=== PATIENT | female | born 1985 | race Caucasian/White ===

== ENCOUNTER 2019-12-26 08:06 | Emergency (ER) | payer MEDICAID ==
[2019-12-26] MEDS ORDERED: KETOROLAC 30 MG/ML VIAL IVP STA (08:41)
[2019-12-26] MEDS ORDERED: SODIUM CHLORIDE 0.9% 1,000 ML IV STA (08:41)
[2019-12-26 08:42] LABS: BASOPHILS # (AUTO) 0.1 10^3/uL (0.0-0.1); BASOPHILS % (AUTO) 1.2 %; EOSINOPHILS # (AUTO) 0.1 10^3/uL (0.0-0.7); EOSINOPHILS % (AUTO) 1.9 %; HGB - HEMOGLOBIN 13.7 g/dL (12.0-16.0); LYMPHOCYTES # (AUTO) 1.2 10^3/uL (1.5-3.5); LYMPHOCYTES % (AUTO) 27.2 %; MEAN CORPUSCULAR HEMOGLOBIN 31.1 pg (27.0-31.0); MEAN CORPUSCULAR HGB CONC 34.8 g/dL (32.0-36.0); MEAN CORPUSCULAR VOLUME 89.5 fL (81.0-99.0); MEAN PLATELET VOLUME 10.1 fL (7.9-10.8); MONOCYTES # (AUTO) 0.4 10^3/uL (0.0-1.0); MONOCYTES % (AUTO) 10.2 %; NEUTROPHILS # (AUTO) 2.5 10^3/uL (1.5-6.6); NEUTROPHILS % (AUTO) 59.3 %; PLT - PLATELET COUNT 299 10^3/uL (130-450); WHITE BLOOD COUNT 4.2 x10^3/uL (4.8-10.8)
[2019-12-26] MEDS ORDERED: cefTRIAXone 1 GM VIAL IVP STA (08:43)
[2019-12-26 08:44] LABS: BILIRUBIN,URINE NEGATIVE (NEGATIVE); GLUCOSE, URINE (UA) NEGATIVE (NEGATIVE); KETONES,URINE (UA) NEGATIVE (NEGATIVE); LEUKOCYTE ESTERASE, URINE NEGATIVE (NEGATIVE); NITRITE,URINE NEGATIVE (NEGATIVE); OCCULT BLOOD,URINE MODERATE (NEGATIVE); PH,URINE 7.5 PH (5.0-7.5); PROTEIN,URINE NEGATIVE (NEGATIVE); UROBILINOGEN,URINE 0.2 (NORMAL) E.U./dL (NORMAL)
--- NOTE | 2019-12-26 08:45 | ED Physician Documentation ---
History of Present Illness - Stated complaint Stated Complaint: R FLANK PX - Chief complaint Chief Complaint: Abd Pain - History obtained from History obtained from: Patient - History of Present Illness Timing: Today Pain level max: 0 Pain level now: 0 - Additonal information Additional information: 34-year-old female presents to the emergency department complaining of flank pain for the past week. She had dysuria approximately 1 week ago, was seen at urgent care and states that her urine was clean. She states they prescribed antibiotics "just in case". Increasing right flank pain today. Nothing makes it better or worse. Has had nausea but no vomiting. Currently on her menses. Denies any possibility of . No fevers. No vaginal discharge. No diarrhea or constipation. Review of Systems Ten Systems: 10 systems reviewed and negative Constitutional: denies: Fever, Chills Nose: denies: Rhinorrhea / runny nose, Congestion Respiratory: denies: Cough GI: reports: Nausea. denies: Vomiting, Diarrhea, Hematemesis, Bloody / black stool : reports: Dysuria. denies: Frequency, Hesitancy, Discharge, Now EGA Skin: denies: Rash Musculoskeletal: denies: Neck pain Neurologic: denies: Headache PD PAST MEDICAL HISTORY - Past Medical History Past Medical History: Yes Other Past Medical History: Seasonal allergies - Past Surgical History Past Surgical History: No - Present Medications Home Medications: Ambulatory Orders Medication Instructions Recorded Confirmed Cefdinir 300 mg PO BID #20 capsule 12/26/19 - Allergies Allergies/Adverse Reactions: Allergies Allergy/AdvReac Type Severity Reaction Status Date / Time No Known Drug Allergies Allergy Verified 12/26/19 08:21 - Living Situation Living Situation: reports: With family Living Arrangement: reports: At home - Social History Does the pt smoke?: No Does the pt have substance abuse?: No - Family History Family history: reports: Non contributory PD ED PE NORMAL - Vitals Vital signs reviewed: Yes - General General: Alert and oriented X 3, No acute distress, Well developed/nourished - HEENT HEENT: PERRL, Moist mucous membranes - Neck Neck: Supple, no meningeal sign - Cardiac Cardiac: RRR, Strong equal pulses - Respiratory Respiratory: No respiratory distress, Clear bilaterally - Abdomen Abdomen: Soft, Non tender, Non distended - Back Back: No spinal TTP, Other (Right CVA tenderness) - Derm Derm: Warm and dry - Extremities Extremities: No edema - Neuro Neuro: Alert and oriented X 3 - Psych Psych: Normal mood, Normal affect Results - Vitals Vitals: Vital Signs - 24 hr 12/26/19 12/26/19 08:13 10:17 Temperature 37.0 C 37.1 C Heart Rate 69 78 Respiratory 20 18 Rate Blood Pressure 99/53 L 105/81 H O2 Saturation 100 98 Oxygen O2 Source Room air - Labs Labs: Laboratory Tests 12/26/19 12/26/19 12/26/19 08:31 08:31 08:37 WBC 4.2 L RBC 4.40 Hgb 13.7 Hct 39.4 MCV 89.5 MCH 31.1 H MCHC 34.8 RDW 13.0 Plt Count 299 MPV 10.1 Neut # (Auto) 2.5 Lymph # (Auto) 1.2 L [place] # (Auto) 0.4 Eos # (Auto) 0.1 Baso # (Auto) 0.1 Absolute Nucleated RBC 0.00 Nucleated RBC % 0.0 Sodium Potassium Chloride Carbon Dioxide Anion Gap BUN Creatinine Estimated GFR (MDRD) Glucose Calcium Total Bilirubin AST ALT Alkaline Phosphatase Total Protein Albumin Globulin Albumin/Globulin Ratio Lipase Urine Color YELLOW Urine Clarity CLEAR Urine pH 7.5 Ur Specific Adams 1.010 Urine Protein NEGATIVE Urine Glucose (UA) NEGATIVE Urine Ketones NEGATIVE Urine Occult Blood MODERATE H Urine Nitrite NEGATIVE Urine Bilirubin NEGATIVE Urine Urobilinogen 0.2 (NORMAL) Ur Leukocyte Esterase NEGATIVE Urine RBC 0-5 Urine WBC 0-3 Ur Squamous Epith Cells RARE Squamous Urine Bacteria Rare Ur Microscopic Review INDICATED Urine Culture Comments NOT INDICATED Urine HCG, Qual NEGATIVE Urine Opiates Screen NEGATIVE Ur Oxycodone Screen NEGATIVE Urine Methadone Screen NEGATIVE Ur Propoxyphene Screen NEGATIVE Ur Barbiturates Screen NEGATIVE Ur Tricyclics Screen NEGATIVE Ur Phencyclidine Scrn NEGATIVE Ur Amphetamine Screen NEGATIVE U Methamphetamines Scrn NEGATIVE U Benzodiazepines Scrn NEGATIVE Urine Cocaine Screen NEGATIVE U Cannabinoids Screen NEGATIVE 12/26/19 08:37 WBC RBC Hgb Hct MCV MCH MCHC RDW Plt Count MPV Neut # (Auto) Lymph # (Auto) [place] # (Auto) Eos # (Auto) Baso # (Auto) Absolute Nucleated RBC Nucleated RBC % Sodium 134 L Potassium 3.5 Chloride 103 Carbon Dioxide 24 Anion Gap 7.0 BUN 10 Creatinine 0.6 Estimated GFR (MDRD) 114 Glucose 98 Calcium 9.1 Total Bilirubin 0.7 AST 19 ALT 14 Alkaline Phosphatase 37 L Total Protein 6.9 Albumin 4.5 Globulin 2.4 Albumin/Globulin Ratio 1.9 Lipase 30 Urine Color Urine Clarity Urine pH Ur Specific Adams Urine Protein Urine Glucose (UA) Urine Ketones Urine Occult Blood Urine Nitrite Urine Bilirubin Urine Urobilinogen Ur Leukocyte Esterase Urine RBC Urine WBC Ur Squamous Epith Cells Urine Bacteria Ur Microscopic Review Urine Culture Comments Urine HCG, Qual Urine Opiates Screen Ur Oxycodone Screen Urine Methadone Screen Ur Propoxyphene Screen Ur Barbiturates Screen Ur Tricyclics Screen Ur Phencyclidine Scrn Ur Amphetamine Screen U Methamphetamines Scrn U Benzodiazepines Scrn Urine Cocaine Screen U Cannabinoids Screen - Rads (name of study) CT abd pelvis Radiology: Prelim report reviewed, EMP read contemporaneously, See rad report (No acute abnormality) PD MEDICAL DECISION MAKING - ED course Complexity details: reviewed results, re-evaluated patient, considered differential, d/w patient ED course: Patient with right flank pain. This was preceded by dysuria. Possible pyelonephritis. No evidence of ureteral stone on CT scan. No evidence of abscess. Pain well controlled with Toradol. Given Rocephin here as well. We will treat her as pyelonephritis. She is well-appearing, nontoxic. Afebrile. Tolerating p.o. without difficulty. Not . Patient counseled regarding signs and symptoms for which I believe and urgent re-evaluation would be necessary. Patient with good understanding of and agreement to plan and is comfortable going home at this time This document was made in part using voice recognition software. While efforts are made to proofread this document, sound alike and grammatical errors may occur. Departure - Departure Disposition: 01 Home, Self Care Clinical Impression: Pyelonephritis Condition: Good Instructions: ED Kidney Infec Female Follow-Up: your,doctor in 1 week [Other] Prescriptions: Cefdinir 300 mg PO BID #20 capsule Comments: take all antibiotics until gone. Return if you worsen. Follow-up with your doctor for further care. Discharge Date/Time: 12/26/19 10:17
[2019-12-26 08:46] LABS: CLARITY,URINE CLEAR (CLEAR); HCG UR QUAL NEGATIVE
[2019-12-26 08:49] LABS: BACTERIA,URINE Rare /HPF (None Seen); RBC,URINE 0-5 /HPF (0-5); SQUAMOUS EPITHELIAL CELL,UR RARE Squamous (<= Few)
[2019-12-26] MEDS ORDERED: IOVERSOL 320 100 ML VIAL IVP ONE ×2 (08:54→09:41)
[2019-12-26 08:56] LABS: ALBUMIN 4.5 g/dL (3.2-5.5); ALBUMIN/GLOBULIN RATIO 1.9 (1.0-2.2); BILIRUBIN,TOTAL 0.7 mg/dL (0.2-1.0); CALCIUM 9.1 mg/dL (8.5-10.3); CREATININE 0.6 mg/dL (0.4-1.0); TOTAL PROTEIN 6.9 g/dL (6.7-8.2)
[2019-12-26 09:36] LABS: MUDS CUTOFF CONCENTRATIONS CUTOFF CONC BELOW:
--- NOTE | 2019-12-26 09:45 | CT Report ---
PROCEDURE: Abdomen/Pelvis W INDICATIONS: R flank pain, pyelo vs stone? CONTRAST: IV CONTRAST: Optiray 320 ml: 100 PO CONTRAST: *NO PO CONTRAST TECHNIQUE: After the administration of oral and intravenous contrast, 5 mm thick sections acquired from the diap hragms to the symphysis. 5 mm thick coronal and sagittal reformats were acquired. For radiation dos e reduction, the following was used: automated exposure control, adjustment of mA and/or kV accordin g to patient size. COMPARISON: None. FINDINGS: Image quality: Excellent. ABDOMEN: Lung bases: Lung bases are clear. Heart size is normal. Solid organs: The liver is enlarged in size and show normal contrast enhancement. Spleen show normal size and enhancement. Gallbladder is within normal limits. Biliary system is non dilated. Pancreas enhances normally. No adrenal nodules. Kidneys demonstrate normal size and enhancement, without hy dronephrosis. 1.4 cm cortical cyst is seen in mid pole of right kidney. Additional subcentimeter bila teral renal cortical cysts are also seen. There is also a 1.1 cm lower pole right renal cortical cyst s. No perinephric fat stranding or fluid collection. Peritoneum and bowel: Bowel loops demonstrate normal wall thickness and caliber. No free fluid or a ir. Significant fecal stasis throughout the colon is seen. Nodes and vessels: No retroperitoneal or mesenteric adenopathy by size criteria. Aorta and inferior vena cava are normal in size. Miscellaneous: No ventral hernias. PELVIS: Genitourinary: Bladder wall thickness is normal. Small phleboliths are noted in bilateral lower pel vis. Miscellaneous: No inguinal hernias or adenopathy. No gross abnormality is seen in the uterus and bi lateral adnexa. Bones: No suspicious bony lesions. No vertebral body compression fractures. Significant degenerati ve disc disease at L3-4 through L5-S1 levels are seen. IMPRESSION: 1. No renal stone or hydronephrosis. Bilateral renal cysts as above. No perinephric fat stranding or fluid. Normal-appearing bilateral ureters and distended urinary bladder. 2. Constipation. No bowel obstruction. No abnormal bowel wall thickening. No free fluid or free air. 3. Hepatomegaly, no discrete hepatic lesion. Reviewed by: Duncan Villa MD on 12/26/2019 9:44 AM PDT Approved by: Duncan Villa MD on 12/26/2019 9:44 AM PDT Station ID: [id number]
[2019-12-26 09:49] LABS: AMPHETAMINE SCREEN,URINE NEGATIVE (NEGATIVE); BENZODIAZEPINES SCREEN, URINE NEGATIVE (NEGATIVE); COCAINE SCREEN URINE NEGATIVE (NEGATIVE); METHADONE SCREEN, URINE NEGATIVE (NEGATIVE); METHAMPHETAMINES SCREEN, URINE NEGATIVE (NEGATIVE); OPIATE SCREEN, URINE NEGATIVE (NEGATIVE); OXYCODONE SCREEN, URINE NEGATIVE (NEGATIVE); PROPOXYPHENE SCREEN, URINE NEGATIVE (NEGATIVE); TRICYCLIC ANTIDEPRESSANT,URINE NEGATIVE (NEGATIVE)
[2019-12-26 10:17] VITALS: BP 105/81
== END 2019-12-26 10:17 | disposition home or self-care (01) ==
LOC: ED 08:06
DX: N12 Tubulo-interstitial nephritis, not specified as acute or chronic (principal)
CPT/HCPCS: 36415; 74177; 80053; 80306; 81001; 81025; 83690; 85025; 96374; 99284; Q9967; 81003; 87086

== ENCOUNTER 2021-07-29 13:16 | Outpatient (CLI) | payer MEDICAID | END 2021-07-29 13:17 | disposition critical access hospital (66) | LOC: EMS 13:16 | DX: J45.909 Unspecified asthma, uncomplicated (principal); R00.0 Tachycardia, unspecified | CPT/HCPCS: A0425; A0427; A0999 ==

== ENCOUNTER 2021-07-29 13:38 | Emergency (ER) | payer MEDICAID ==
[2021-07-29] MEDS ORDERED: diphenhydrAMINE INJ 50 MG/ML VIAL IVP STA (13:51)
--- NOTE | 2021-07-29 13:53 | ED Physician Documentation ---
PD HPI DYSPNEA - Stated complaint Stated Complaint: SOA - Chief complaint Chief Complaint: Resp - History obtained from History obtained from: Patient, EMS - Additional information Additional information: 36-year-old woman with mild intermittent asthma developed an asthma attack today. 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 She was going to the store to buy some Benadryl, but was feeling more short of breath so EMS was summoned. They describe her as having some significant wheezing but also feeling panicky. On arrival she has had a DuoNeb and Solu-Medrol and is not wheezing anymore but feels still feels short of breath. Review of Systems Constitutional: denies: Fever, Chills Cardiac: denies: Chest pain / pressure, Palpitations Respiratory: reports: Dyspnea, Cough PD PAST MEDICAL HISTORY - Past Surgical History Past Surgical History: No - Present Medications Home Medications: Ambulatory Orders Medication Instructions Recorded Confirmed Cefdinir 300 mg PO BID #20 capsule 12/26/19 Naproxen 375 mg PO TID #30 tablet 12/30/19 metroNIDAZOLE [Flagyl] 500 mg PO BID #14 tablet 12/30/19 predniSONE [Deltasone] 60 mg PO DAILY 5 Days #15 tablet 07/29/21 - Allergies Allergies/Adverse Reactions: Allergies Allergy/AdvReac Type Severity Reaction Status Date / Time No Known Drug Allergies Allergy Verified 07/29/21 13:44 - Social History Does the pt smoke?: No Does the pt have substance abuse?: No PD ED PE NORMAL - Vitals Vital signs reviewed: Yes - General General: Alert and oriented X 3, Other (She appears slightly anxious but breathing is nonlabored) - HEENT HEENT: Pharynx benign - Respiratory Respiratory: No respiratory distress, Other (Lungs are clear at this juncture) - Abdomen Abdomen: Non tender - Derm Derm: No rash - Neuro Neuro: Alert and oriented X 3, Normal speech Results - Vitals Vitals: Vital Signs - 24 hr 07/29/21 13:40 Temperature 36.7 C Heart Rate 96 Respiratory 18 Rate Blood Pressure 105/91 H O2 Saturation 100 Oxygen O2 Source Room air PD MEDICAL DECISION MAKING - ED course ED course: 36-year-old woman presents with an asthma exacerbation, on arrival here her lungs are clear but still having some coughing. She requested Benadryl and this was given after which she was feeling much better. Remained clear on auscultation on reexamination prior to discharge. Departure - Departure Disposition: 01 Home, Self Care Clinical Impression: Asthma Qualifiers: Asthma severity: mild Asthma persistence: intermittent Asthma complication type: with acute exacerbation Qualified Code(s): J45.21 - Mild intermittent asthma with (acute) exacerbation Condition: Good Record reviewed to determine appropriate education?: Yes Instructions: Asthma Dc Prescriptions: predniSONE [Deltasone] 60 mg PO DAILY 5 Days #15 tablet Comments: I sent your prescription electronically to [facility] in [place]. As discussed, you do not need any more steroids until tomorrow since you had a dose on the way here in the ambulance. Return for new or worsening symptoms. Follow-up with your doctor, next available appointment.
--- NOTE | 2021-07-29 14:37 | XRAY Report ---
PROCEDURE: Chest 1 View X-Ray INDICATIONS: dyspnea TECHNIQUE: One view of the chest was acquired. COMPARISON: None FINDINGS: Surgical changes and devices: None. Lungs and pleura: No pleural effusions or pneumothorax. Lungs are hyperinflated and slightly hyperl ucent, but otherwise clear. Mediastinum: Mediastinal contours appear normal. Heart size is normal. Bones and chest wall: No suspicious bony lesions. Overlying soft tissues appear unremarkable. IMPRESSION: Hyperinflated lungs consistent with patient history of asthma. No pneumothorax or atelectasis. Reviewed by: Apoorva Gonzalez MD on 07/29/2021 2:36 PM PST Approved by: Apoorva Gonzalez MD on 07/29/2021 2:36 PM PST Station ID: [id number]
[2021-07-29 14:54] VITALS: BP 104/63
== END 2021-07-29 14:54 | disposition home or self-care (01) ==
LOC: EDUNIT# → ED 13:38
DX: J45.21 Mild intermittent asthma with (acute) exacerbation (principal)
CPT/HCPCS: 71045; 96374; 99283; 99284; J1200

== ENCOUNTER 2022-05-09 21:38 | Outpatient (CLI) | payer MEDICAID | END 2022-05-09 23:59 | disposition left against medical advice (07) | LOC: EMS 21:38 | DX: R06.02 Shortness of breath (principal); F41.9 Anxiety disorder, unspecified ==

== ENCOUNTER 2022-05-19 15:08 | Emergency (ER) | payer MEDICAID ==
--- NOTE | 2022-05-19 16:52 | ED Physician Documentation ---
PD HPI DYSPNEA - Stated complaint Stated Complaint: SOA - Chief complaint Chief Complaint: Resp - History obtained from History obtained from: Patient - Additional information Additional information: The patient comes to the emergency department with chief complaint of dyspnea after working outside in the cold air. She has a history of asthma and since the weather has gotten colder, she has had more exacerbations than usual. The patient states that she took quite a few puffs of her albuterol inhaler which seemed to help, but she is still noticing that she coughs with exhalation, and her breathing still feels tight if she tries to walk. She denies being ill with anything recently. She is otherwise fairly healthy. No other complaints at this time. Review of Systems Ten Systems: 10 systems reviewed and negative Constitutional: reports: Reviewed and negative Eyes: reports: Reviewed and negative Ears: reports: Reviewed and negative Nose: reports: Reviewed and negative Throat: reports: Reviewed and negative Cardiac: reports: Reviewed and negative Respiratory: reports: Dyspnea, Cough GI: reports: Reviewed and negative : reports: Reviewed and negative Skin: reports: Reviewed and negative Musculoskeletal: reports: Reviewed and negative Neurologic: reports: Reviewed and negative Psychiatric: reports: Reviewed and negative Endocrine: reports: Reviewed and negative Immunocompromised: reports: Reviewed and negative PD PAST MEDICAL HISTORY - Past Surgical History Past Surgical History: No - Present Medications Home Medications: Ambulatory Orders Medication Instructions Recorded Confirmed Cefdinir 300 mg PO BID #20 capsule 12/26/19 Naproxen 375 mg PO TID #30 tablet 12/30/19 metroNIDAZOLE [Flagyl] 500 mg PO BID #14 tablet 12/30/19 predniSONE [Deltasone] 60 mg PO DAILY 5 Days #15 tablet 07/29/21 predniSONE [Deltasone] 60 mg PO DAILY 5 Days #15 tablet 05/19/22 - Allergies Allergies/Adverse Reactions: Allergies Allergy/AdvReac Type Severity Reaction Status Date / Time No Known Drug Allergies Allergy Verified 05/19/22 15:15 - Social History Does the pt smoke?: No Smoking Status: Never smoker Does the pt have substance abuse?: No PD ED PE NORMAL - Vitals Vital signs reviewed: Yes - General General: Alert and oriented X 3, No acute distress, Well developed/nourished - HEENT HEENT: Atraumatic, PERRL, EOMI, Moist mucous membranes - Neck Neck: Supple, no meningeal sign - Cardiac Cardiac: RRR, No murmur, Strong equal pulses - Respiratory Respiratory: No respiratory distress, Clear bilaterally, Other (Dry, expiratory cough) - Derm Derm: Warm and dry - Extremities Extremities: No deformity - Neuro Neuro: Alert and oriented X 3 - Psych Psych: Normal mood, Normal affect Results - Vitals Vitals: Vital Signs - 24 hr 05/19/22 15:13 Temperature 36.4 C L Heart Rate 84 Respiratory 20 Rate Blood Pressure 121/76 O2 Saturation 100 Oxygen O2 Source Room air PD Medical Decision Making - ED course Complexity details: considered differential, d/w patient ED course: I discussed with the patient that her lungs are clear now and she has good oxygen saturation. She is speaking easily. I have given her a dose of prednisone here in the emergency department. She has plenty of albuterol at home. I will send a prescription for a course of prednisone to the pharmacy of her choice. We have discussed the usual indications for return Departure - Departure Disposition: 01 Home, Self Care Clinical Impression: Asthma exacerbation Qualifiers: Asthma severity: mild Asthma persistence: intermittent Qualified Code(s): J45.21 - Mild intermittent asthma with (acute) exacerbation Condition: Stable Instructions: Asthma Dc Prescriptions: predniSONE [Deltasone] 60 mg PO DAILY 5 Days #15 tablet Comments: Your prescription has been electronically transmitted to [facility] in [place]. You have been given your first dose of steroids here.
[2022-05-19] MEDS: predniSONE 20 MG TABLET PO STA (16:58)
[2022-05-19 17:07] VITALS: BP 100/67
== END 2022-05-19 17:06 | disposition home or self-care (01) ==
LOC: ED 15:08
DX: J45.21 Mild intermittent asthma with (acute) exacerbation (principal)
CPT/HCPCS: 99282; 99283; J7512

== ENCOUNTER 2023-04-17 14:16 | Outpatient (CLI) | payer MEDICAID | END 2023-04-17 14:17 | disposition critical access hospital (66) | LOC: EMS 14:16 | DX: R06.00 Dyspnea, unspecified (principal); R23.1 Pallor | CPT/HCPCS: A0425; A0427; A0999 ==

== ENCOUNTER 2023-04-17 15:06 | Emergency (ER) | payer MEDICAID ==
[2023-04-17 15:18] VITALS: O2SAT 100
--- NOTE | 2023-04-17 15:38 | ED Physician Documentation ---
History of Present Illness - Stated complaint Stated Complaint: SOA/ASTHMA - Chief complaint Chief Complaint: Resp - Additonal information Additional information: 37-year-old female with a history of mild intermittent asthma with approximately 2 exacerbations a year presents today with that wheezing and shortness of breath. Symptoms started today. She states she has been battling a mild upper respiratory infection over the course last several days and felt like that was improving but then today felt like she was having an asthma exacerbation. She does have albuterol at home but cannot find it and does not use it on a regular basis. She uses it infrequently as needed. She is not on any maintenance medication for her asthma and rarely has any issues with it except in the wintertime or if she gets a cold. She has not had a fever or chills, no chest pain, no abdominal pain nausea vomiting or diarrhea. She received a DuoNeb by EMS prior to arrival and is feeling improved. Review of Systems Constitutional: reports: Reviewed and negative Nose: reports: Rhinorrhea / runny nose, Congestion. denies: Sinus pressure / pain Throat: reports: Reviewed and negative Cardiac: reports: Reviewed and negative Respiratory: reports: Dyspnea, Cough, Wheezing GI: reports: Reviewed and negative : reports: Reviewed and negative PD PAST MEDICAL HISTORY - Past Medical History Past Medical History: Yes Respiratory: Asthma - Past Surgical History Past Surgical History: No - Present Medications Home Medications: Ambulatory Orders Medication Instructions Recorded Confirmed Albuterol Sulf [Ventolin Hfa 1 - 2 puffs INH Q4HR PRN #1 each 04/17/23 Inhaler] predniSONE [Deltasone] 10 mg PO [id number] #42 tab 04/17/23 - Allergies Allergies/Adverse Reactions: Allergies Allergy/AdvReac Type Severity Reaction Status Date / Time No Known Drug Allergies Allergy Verified 04/17/23 15:14 - Social History Does the pt smoke?: No Smoking Status: Never smoker Does the pt drink ETOH?: No Does the pt have substance abuse?: No - Immunizations Immunizations are current?: Yes - POLST Patient has POLST: No PD ED PE NORMAL - Vitals Vital signs reviewed: Yes - General General: Alert and oriented X 3, No acute distress, Well developed/nourished - HEENT HEENT: Atraumatic, Ears normal, Moist mucous membranes, Pharynx benign - Neck Neck: Supple, no meningeal sign, No adenopathy, No JVD - Cardiac Cardiac: RRR, No murmur, No gallop, No rub, Strong equal pulses - Respiratory Respiratory: No respiratory distress, Clear bilaterally - Abdomen Abdomen: Normal bowel sounds, Soft, Non tender, Non distended Results - Vitals Vitals: Vital Signs - 24 hr 04/17/23 15:09 Temperature 36.4 C L Heart Rate 76 Respiratory 20 Rate Blood Pressure 120/79 O2 Saturation 100 Oxygen O2 Source Room air PD Medical Decision Making - ED course Complexity details: considered differential, d/w patient ED course: 37-year-old female with a past medical history of asthma presented with cough and wheezing similar to prior asthma exacerbations per patient. Patient had received a DuoNeb prior to arrival and on evaluation here, the patient's lungs are clear, she is talking in full sentences and breathing comfortably on room air. She is saturating 100%. No additional medication was indicated emergently however I do suspect that the patient has a mild asthma exacerbation with a history of mild intermittent asthma. We will treat with albuterol as needed and a short course of prednisone. The patient was advised of additional supportive measures for URI type symptoms as well as return precautions if any new or worsening symptoms. Patient discharged home in stable condition. Departure - Departure Disposition: 01 Home, Self Care Clinical Impression: Asthma Qualifiers: Asthma severity: mild Asthma persistence: intermittent Asthma complication type: with acute exacerbation Qualified Code(s): J45.21 - Mild intermittent asthma with (acute) exacerbation Condition: Good Instructions: Asthma Dc Prescriptions: Albuterol Sulf [Ventolin Hfa Inhaler] 1 - 2 puffs INH Q4HR PRN #1 each PRN Reason: Shortness Of Air/Wheezing predniSONE [Deltasone] 10 mg PO [id number] #42 tab Comments: You have a mild asthma exacerbation. It responded well to a "duoneb" and I will discharge you with a refill of the albuterol and a short course of steroids. If you have recurrent symptoms, please return to the ER or see PCP. Forms: PCP List
[2023-04-17 16:05] VITALS: BP 120/78
== END 2023-04-17 15:57 | disposition home or self-care (01) ==
LOC: EDBD → EDUNIT# → ED 15:06
DX: J45.21 Mild intermittent asthma with (acute) exacerbation (principal); Z79.899 Other long term (current) drug therapy
CPT/HCPCS: 99283; 99284

== ENCOUNTER 2023-05-20 07:00 | Outpatient (CLI) | payer MEDICAID ==
--- NOTE | 2023-05-20 17:14 | XRAY Report ---
PROCEDURE: Lumbar Spine Complete INDICATIONS: CONTUSION TO LOWER BACK AND PELVIS TECHNIQUE: 3 views of the lumbar spine were acquired. COMPARISON: None. FINDINGS: Bones: 5 [id number] vertebrae are present. There is mild levocurvature. There is grade 1 anter olisthesis of L4 on L5. Normal bony alignment. No vertebral body compression fractures. No suspicio us bony lesions. Moderate degenerative disc and facet disease at L3-L4, L5 L5 and L5-S1. Oblique views: No pars defects. Soft tissues: Overlying bowel gas pattern is normal. No suspicious soft tissue calcifications. IMPRESSION: 1. No acute osseous abnormalities. 2. Moderate degenerative disc and facet disease in lumbar spine. 3. Grade 1 anterolisthesis of L4 on L5. Reviewed by: Te Cruz MD on 05/20/2023 5:13 PM PST Approved by: Te Cruz MD on 05/20/2023 5:13 PM PST Station ID: [id number]
== END 2023-05-20 23:59 | disposition home or self-care (01) ==
LOC: DI.S 07:00
PROVIDERS: ATTEND Physician Assistant Medical
DX: S30.0XXA Contusion of lower back and pelvis, initial encounter (principal); M47.816 Spondylosis without myelopathy or radiculopathy, lumbar region; M51.36 Other intervertebral disc degeneration, lumbar region; M43.16 Spondylolisthesis, lumbar region

== ENCOUNTER 2023-07-26 11:01 | Emergency (ER) | payer MEDICAID ==
[2023-07-26 11:32] VITALS: BP 112/74; O2SAT 100
[2023-07-26] MEDS: BUFFERED LIDOCAINE 10 ML SYRINGE SUBQ STA (12:19)
[2023-07-26] MEDS: TETANUS/DIPHTHERIA/PERTUSSIS 0.5 ML SYRINGE IM ONE (12:20)
--- NOTE | 2023-07-26 12:31 | ED Physician Documentation ---
PD HPI UPPER EXT INJURY - Stated complaint Stated Complaint: LT HAND LAC - Chief complaint Chief Complaint: Laceration - History obtained from History obtained from: Patient - History of Present Illness Location: Left - Additonal information Additional information: Right-handed woman with unknown tetanus status had a trip and fall and cut her left palm on a piece of wood just prior to arrival. PD PAST MEDICAL HISTORY - Past Medical History Past Medical History: Yes Respiratory: Asthma Psych: Depression, Anxiety - Past Surgical History Past Surgical History: Yes /[employer]IAN: section - Present Medications Home Medications: Ambulatory Orders Medication Instructions Recorded Confirmed Albuterol Sulf [Ventolin Hfa 1 - 2 puffs INH Q4HR PRN #1 each 04/17/23 Inhaler] predniSONE [Deltasone] 10 mg PO [id number] #42 tab 04/17/23 cephALEXin [Keflex] 500 mg PO Q6H #20 cap 07/26/23 - Allergies Allergies/Adverse Reactions: Allergies Allergy/AdvReac Type Severity Reaction Status Date / Time No Known Drug Allergies Allergy Verified 07/26/23 11:20 - Social History Does the pt smoke?: No Smoking Status: Never smoker Does the pt drink ETOH?: No Does the pt have substance abuse?: No - Immunizations Immunizations are current?: Yes - POLST Patient has POLST: No PD ED PE NORMAL - Vitals Vital signs reviewed: Yes - General General: Alert and oriented X 3, No acute distress - Extremities Extremities: Other (On the medial side of the palmar surface of the left hand proximal to the fifth digit there is a 3 cm laceration somewhat jagged. There is some grit in it but no wood foreign body. She has good flexion strength in the fourth and fifth digits with intact sensation in the fourth and fifth digits.) - Neuro Neuro: Alert and oriented X 3, Normal speech Results - Vitals Vitals: Vital Signs - 24 hr 07/26/23 11:21 Temperature 36.8 C Heart Rate 66 Respiratory 16 Rate Blood Pressure 112/74 O2 Saturation 100 Oxygen O2 Source Room air Procedures - Laceration (location) L hand Length in cm: 3 Wound type: Linear, Irregular, Into subcut fat, Contaminated Neurovascular status: Sensory intact, Motor intact, Vascular intact Anesthesia: Lidocaine 1%, With bicarb Wound preparation: Chlorhexadine, Irrigated copiously NS, Wound explored, To the base Skin layer closure: Nylon, Interrupted, Size #-0 - enter number (4-0), Sutures - enter # (6), Other (The distal part of it was quite shallow and Dermabond placed there.) Other: Patient tolerated well, No complications, Neurovascular intact Departure - Departure Disposition: 01 Home, Self Care Clinical Impression: Laceration of left hand Condition: Good Record reviewed to determine appropriate education?: Yes Instructions: ED Laceration Hand Prescriptions: cephALEXin [Keflex] 500 mg PO Q6H #20 cap Comments: Come back for any signs of infection which would include: Redness, swelling, drainage, increased pain, or fevers. You can wash it soap and water. Keep it covered and moist with bacitracin ointment which is available over the counter; avoid neosporin. Follow-up with your physician in 14 days for suture removal.
[2023-07-26] MEDS: BACITRACIN ZINC OINT 1 PACKET TOP STA (12:34)
[2023-07-26] MEDS: cephALEXin 250 MG CAPSULE PO STA (12:34)
== END 2023-07-26 12:41 | disposition home or self-care (01) ==
LOC: ED 11:01
DX: S61.412A Laceration without foreign body of left hand, initial encounter (principal); W01.118A Fall on same level from slipping, tripping and stumbling with subsequent striking against other sharp object, initial encounter; J45.909 Unspecified asthma, uncomplicated; Z23 Encounter for immunization
CPT/HCPCS: 12002; 90471; 90715; 99283; A9270